=== PATIENT | male | born 2000 | race Two or more races ===

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

== ENCOUNTER 2019-08-24 18:44 | Inpatient (IN) | payer MEDICAID, OTHER ==
[~2019-08-24] VITALS: Ht 185.4 cm; Wt 68.2 kg
[2019-08-24] MEDS ORDERED: MIDAZOLAM DRIP 50 mg/50mL 50 ML IV ONE (18:50)
[2019-08-24] MEDS: MIDAZOLAM DRIP 50 mg/50mL 50 ML IV SCH ×2 (18:58→22:02)
[2019-08-24] MEDS ORDERED: ETOMIDATE (2MG/ML) 20ML VIAL IV ONE (19:00)
[2019-08-24] MEDS ORDERED: MIDAZOLAM HCL 5 MG/ML-1ML VIAL IV ONE (19:00)
[2019-08-24] MEDS ORDERED: SUCCINYLCHOLINE CHLORIDE 20 MG/ML 10ML VIAL IV ONE (19:00)
[2019-08-24] MEDS ORDERED: SODIUM CHLORIDE 0.9% 1,000 ML IVB ONE (19:01)
[2019-08-24] MEDS ORDERED: NOREPINEPHRINE 8 MG/250ML KIT 250 ML IV ONE (19:11)
[2019-08-24] MEDS: NOREPINEPHRINE 8 MG/250ML KIT 250 ML IV SCH (19:15)
[2019-08-24 19:28] LABS: Basophils # (auto) 0 uL; Basophils % (auto) 0.3 % (0.0-2.0); Eosinophils # (auto) 0.3 uL; Hematocrit 51.5 % (41.0-53.0); Hemoglobin 16.8 g/dL (13.5-17.5); Lymphocytes # (auto) 3.9 uL; Lymphocytes % (auto) 31.1 % (10.0-50.0); Mean Corpuscular Hemoglobin 30.8 pg (28.0-32.0); Mean Corpuscular Hgb Conc. 32.6 g/dL (32.0-36.0); Mean Corpuscular Volume 94.4 fL (80.0-100.0); Monocytes # (auto) 0.6 uL; Monocytes % (auto) 5.1 % (0.0-12.0); Neutrophils # (auto) 7.8 uL; Neutrophils % (auto) 61.5 % (37.0-80.0); Nucleated Red Blood Cells % 0.1 %; Platelet Count (auto) 220 10^3/uL (140-450); Red Blood Cells 5.45 10^6/uL (4.5-5.90); Red Cell Distribution Width 13.6 % (11.8-14.3); White Blood Cell 12.7 10^3/uL (4.4-10.8)
[2019-08-24 19:37] LABS: Urine Amorphous Crystal FEW /hpf (None Seen); Urine Bacteria NONE SEEN /hpf (None Seen); Urine Blood TRACE /uL (Negative); Urine Sperm PRESENT /hpf (None Seen); Urine WBC 3 /hpf (0 - 3)
[2019-08-24 19:47] LABS: Albumin 4.2 g/dL (3.4-5.0); Anion Gap 19 (5-15); Blood Alcohol < 3.0 mg/dL (0-5); Blood Urea Nitrogen 18 mg/dL (7-18); Calcium 8.2 mg/dL (8.5-10.1); Carbon Dioxide 15 mmol/L (21-32); Chloride 106 mmol/L (98-107); Glucose 194 mg/dL (74-106); Magnesium 1.9 mg/dL (1.6-2.6); Potassium 3.6 mmol/L (3.5-5.1); Sodium 140 mmol/L (136-145)
[2019-08-24 19:47] LABS: Cannabinoid Screen, Urine NEGATIVE (NEGATIVE)
[2019-08-24 19:50] LABS: Alanine Aminotransferase 139 U/L (16-61); Alkaline Phosphatase 132 U/L (45-117); Aspartate Aminotransferase 151 U/L (15-37); Bilirubin, Total 0.5 mg/dL (0.2-1.0); GFR African American 92 mL/min; GFR Non-African American 76 mL/min; Total Protein 7.3 g/dL (6.4-8.2)
[2019-08-24 19:53] LABS: INR 1.09 (0.9-1.15); Partial Thromboplastin Time 24.9 sec (23.64-32.05)
[2019-08-24 19:54] LABS: Alcohol, Urine < 3.0 mg/dL (0-5); Amphetamine Screen, Urine NEGATIVE (NEGATIVE); Barbiturate Scree,Urine NEGATIVE (NEGATIVE); Benzodiazephine Screen, Urine NEGATIVE (NEGATIVE); Cocaine Screen, Urine NEGATIVE (NEGATIVE); Opiate Scree,Urine NEGATIVE (NEGATIVE); Phencyclidine Screen, Urine NEGATIVE (NEGATIVE)
[2019-08-24] MEDS ORDERED: SODIUM BICARBONATE 8.4 % INJ 50ML VIAL IV ONE (20:15)
[2019-08-24 22:12] VITALS: BP 118/67
[2019-08-24] MEDS ORDERED: NITROGLYCERIN 0.4 MG SL TAB SL PRN (22:45)
[2019-08-24] MEDS ORDERED: DEXTROSE (50%) 50ML SYRG IV PRN (22:45)
[2019-08-24] MEDS ORDERED: MEPERIDINE HCL (25 MG/ML) 1ML VIAL IV PRN ×2 (22:45)
[2019-08-24] MEDS ORDERED: MORPHINE SULF INJ 2 MG/ML SYRINGE 1ML IV PRN (22:45)
[2019-08-24] MEDS ORDERED: MAGNESIUM SULFATE 1GM/100ML 100 ML IV SCH (23:30)
[2019-08-24 23:31] VITALS: BP 121/62
[2019-08-24 23:45] VITALS: BP 112/62
--- NOTE | 2019-08-24 23:55 | NUR ---
Admit to ICU from [facility] to [facility] via gurney on library monitor, intubated and being bagged by Respiratory Therapist. Patient transfered to bed, connected to mechanical ventilator by therapist, ILIANA at bedside. Patient connected to ICU monitoring, weighed by cierra, oriented to Maik Diop, RN primary RN, unit, ventilator and sedation. Family in waiting room, updated on patient status, oriented to Maik Diop as primary nurse.
[2019-08-25] VITALS (100 sets, daily range): BP systolic 82–146; BP diastolic 40–96
--- NOTE | 2019-08-25 | NUR ---
OPENING ASSESSMENT PATIENT SEDATED ON VERSED @15 WITH POSITIVE GAG AND BRISK REACTIVE PUPILS. SEIZURE PRECAUTIONS IN PLACE. PATIENT IS HAVING RAPID MUSCLE MOVEMENTS THAT CAN BE DESCRIBED "SHAKING" ON BILATERAL ARMS. ATRACURIUM TO BE STARTED. TEMP AT THIS TIME IS 37.4'C, INITIATED ZOLL INTRAVENOUS COOLING. HR 100'S NO ECTOPY NOTED. BP 110', LEVO @ 4 MCG'S ETT 7.5 AND 26 @ LIP AC 18. VENT SETTINGS AC 18 TV 500 PEEP +5, FIO2 30%, SAT 100%. LUNGS CLEAR. ETT SUCTION DONE WITH CLEAR SECRETIONS. PAGED HOSPITALIST FOR FENTANYL ORDER, RECEIVED BY ER MD LEY AND STARTED AT THIS TIME. NGT TO RIGHT NARIS CLAMPED, AUSCULTATED AND ASPIRATED FOR CORRECT PLACEMENT. NGUYEN FREE OF KINKS, HUNG BELOW BLADDER DRAINING CLEAR YELLOW URINE. RIGHT FEMORAL ZOLL CATH AND CLEAN DRY AND INTACT. NO HEMATOMA PALPATED. SKIN IS INTACT. BED LOCKED AND IN LOWEST POSITION. ALL FALL AND SAFETY PRECAUTIONS IN PLACE.
[2019-08-25] MEDS: fentaNYL Drip 2500mCg/250mlNS 250 ML IV SCH ×2 (00:10→17:43)
[2019-08-25] MEDS: ATRACURIUM BESYLATE 1,000 MG in D5W 5% 150 ML IV SCH ×2 (00:46→22:07)
[2019-08-25] MEDS: PIPERACILLIN-TAZOB 3.375GM 100 ML IV SCH ×4 (00:52→17:42)
[2019-08-25] MEDS: MIDAZOLAM DRIP 50 mg/50mL 50 ML IV SCH ×5 (00:59→21:28)
[2019-08-25] MEDS ORDERED: SODIUM BICARBONATE 8.4% INJ 50ML SYRINGE ONE (01:09)
[2019-08-25] MEDS: SODIUM BICARBONATE 50ML VIAL 50 ML in SOD CHL 0.45% 1,000 ML IV SCH ×3 (01:20→23:51)
[2019-08-25] MEDS: POTASSIUM CHL 20MEQ/100ML 100 ML IV SCH ×2 (01:32→03:37)
--- NOTE | 2019-08-25 01:45 | NUR ---
ATRACURIUM/TOF INITIAL TO ON RIGHT RADIAL 03/05 WITH POWER OF 4 GAVE INITIAL ATRACURIUM BOLUS PER PROTOCOL 0146 STARTED ATRACURIUM
[2019-08-25] MEDS: ACCU-CHEK COMFORT CURVE STRIP VI SCH ×4 (01:46→17:41)
[2019-08-25] MEDS: InsuLIN REG 1unit/0.01ml Soln (100units/ml) SC SCH ×4 (01:46→17:41)
--- NOTE | 2019-08-25 01:55 | NUR ---
FAMILY 30 PLUS FAMILY/ FRIENDS IN WAITING ICU WAITING ROOM. BROUGHT MOTHER AND FATHER TO BEDSIDE. UPDATED PARENTS ON PATIENT STATUS AND ANSWERED ALL QUESTIONS AND CONCERNS. FATHER SET PASSWORD OF [employer]. VISITORS THEN BEGAN TO VISIT 2 AT A TIME.
--- NOTE | 2019-08-25 02:00 | NUR ---
TOF 2/4 WITH 4 POWER
--- NOTE | 2019-08-25 02:11 | NUR ---
PATIENT @ 33.0'C PATIENT REACHED TARGET THERAPEUTIC TEMPERATURE.
--- NOTE | 2019-08-25 02:20 | NUR ---
TOF 1/4 WITH POWER OF 4 DECREASED PER PROTOCOL
--- NOTE | 2019-08-25 04:30 | NUR ---
PAGED HOSPITALIST SILAS PENNINGTON CALLED BACK, UPDATED ON PATIENT STATUS. INFORMED ABOUT HEART RATE IN 40'S AND ORDERS RECEIVED TO START DOPAMINE AT 2.5MCG/KG/HR FOR BRADYCARDIA AND TO TITRATE TO 5MCG/KG/HR IF BRADYCARDIA CONTINUES.
[2019-08-25] MEDS ORDERED: DOPamine 1600MCG/ML D5W 250 ML IV ONE (04:33)
[2019-08-25] MEDS: DOPamine 1600MCG/ML D5W 250 ML IV SCH ×2 (04:48→21:58)
--- NOTE | 2019-08-25 05:00 | NUR ---
TOF 2/4 WITH POWER OF 4
--- NOTE | 2019-08-25 05:11 | NUR ---
FAMILY AT BEDSIDE PARENTS FATHER AND MOTHER RETURN TO BEDSIDE, UPDATED ON PATIENT STATUS AND NEW MEDICATION DOPAMINE STARTED FOR LOW HEART RATE.
--- NOTE | 2019-08-25 05:27 | NUR ---
SILAS PENNINGTON AT BEDSIDE UPDATED BAG SEWER ON PATIENT STATUS, BAG SEWER SAID TO TITRATE ATRACURIUM TO CONTROL SHIVERS OF PATIENT NOT TO USE TOF.
--- NOTE | 2019-08-25 05:30 | NUR ---
NEURO CONSULT CALLED TO PBX FOR @[id number]
[2019-08-25 05:53] LABS: Basophils # (auto) 0 uL; Basophils % (auto) 0.2 % (0.0-2.0); Eosinophils # (auto) 0 uL; Eosinophils % (auto) 0.1 % (0.0-7.0); Hematocrit 47.6 % (41.0-53.0); Hemoglobin 16.4 g/dL (13.5-17.5); Lymphocytes # (auto) 1.6 uL; Lymphocytes % (auto) 10.1 % (10.0-50.0); Mean Corpuscular Hemoglobin 31.2 pg (28.0-32.0); Mean Corpuscular Hgb Conc. 34.4 g/dL (32.0-36.0); Mean Corpuscular Volume 90.7 fL (80.0-100.0); Monocytes # (auto) 1.7 uL; Monocytes % (auto) 10.5 % (0.0-12.0); Neutrophils # (auto) 12.7 uL; Neutrophils % (auto) 79.1 % (37.0-80.0); Platelet Count (auto) 172 10^3/uL (140-450); Red Blood Cells 5.25 10^6/uL (4.5-5.90); Red Cell Distribution Width 13.2 % (11.8-14.3); White Blood Cell 16.1 10^3/uL (4.4-10.8)
--- NOTE | 2019-08-25 05:55 | NUR ---
SILAS PENNINGTON SPOKE WITH PATENTS ADITI UPDATED BOTH MOTHER AND FATHER OF PATIENT AT BEDSIDE ABOUT PATIENT STATUS. ALL QUESTIONS AND CANCERS ADDRESSED AT THIS TIME. Addendum: 08/25/19 at 0557 by Maik Diop RN RN CONCERNS NOT CANCERS-TYPO
--- NOTE | 2019-08-25 07:36 | NUR ---
END OF SHIFT GAVE REPORT OF FULL SARI ICU PATIENT TO DAY SHIFT RN. ALL SAFETY PRECAUTIONS IN PLACE. VITAL SIGNS STABLE.
--- NOTE | 2019-08-25 08:00 | NUR ---
SBAR REPORT RECEIVED FROM NOC SHIFT RN AT THIS TIME. AM ASSESSMENT PERFORMED WITH 0 COMPLICATIONS NOTED. SEE FLOWSHEET FOR MORE DETAILS. VSS. PT REMAINS ON THERAPEUTIC HYPOTHERMIA PROTOCOL WITH 0 ISSUES NOTED AT THIS TIME.
[2019-08-25 08:18] LABS: Potassium 3.9 mmol/L (3.5-5.1)
[2019-08-25 08:19] LABS: Albumin 4.4 g/dL (3.4-5.0); BUN/Creatinine Ratio 14.3; Bilirubin, Total 1.1 mg/dL (0.2-1.0); Calcium 8.9 mg/dL (8.5-10.1); Total Protein 7.3 g/dL (6.4-8.2)
--- NOTE | 2019-08-25 08:20 | NUR ---
MD COYNE AT BEDSIDE. MD SPOKE WITH FAMILY EXTENSIVELY REGARDING POC. FAMILY VERBALIZED UNDERSTANDING. NO FURTHER QUESTIONS AT THIS TIME, VSS.
--- NOTE | 2019-08-25 09:00 | NUR ---
SOLUTION COORDINATOR AT BEDSIDE AT THIS TIME PERFORMING PROCEDURE PER ORDERS. PT TOLERATED ACTIVITY WELL WITH 0 COMPLICATIONS NOTED.VSS.
[2019-08-25] MEDS: FAMOTIDINE (10MG/ML) 2ML VL IV SCH ×2 (09:46→22:02)
[2019-08-25] MEDS: ENOXAPARIN SOD 30 MG/0.3 ML SYRINGE SC SCH (09:46)
--- NOTE | 2019-08-25 10:30 | NUR ---
LOWER EXTREMITY VENOUS STUDY BEING DONE AT THIS TIME WITH 0 COMPLICATIONS NOTED, VSS.
--- NOTE | 2019-08-25 11:30 | NUR ---
BRIDAL STYLIST SALES CONSULTANT AT BEDSIDE PERFORMING PROCEDURE REQUESTED BY MD COYNE. PT TOLERATED PROCEDURE WELL WITH 0 COMPLICATIONS NOTED. VSS.
--- NOTE | 2019-08-25 12:00 | NUR ---
WOUND CARE NOTE: PATIENT ADDED TO SKIN INTEGRITY MONITORING D/T PATIENT'S INTUBATION STATUS, AND LOW MIHIR SCORE OF 12. PATIENT ADMITTED WITH DIAGNOSIS OF CARDIAC ARREST. HE REMAINS INTUBATED, SEDATED AT THIS TIME. PATIENT IS CURRENTLY WOUND FREE. SKIN/WOUND CARE PLAN IMPLEMENTED. RECOMMEND: FREQUENT TURN SCHEDULE Q 2 HOURS, PRN CONDITION PERMITS, WITH PRESSURE REDISTRIBUTION USING PILLOWS/WEDGES, BID/PRN APPLICATION WITH MOISTURE BARRIER CREAM, WITH OPTIFOAM GENTLE SACRAL DRESSING PREVENTATIVE, DIETARY CONSULT, CONTINUED MONITORING BY WOUND CARE TEAM.
--- NOTE | 2019-08-25 12:00 | NUR ---
MD LEE AT BEDSIDE. UPDATED MD ON PT'S OVERALL STATUS. NEW ORDERS GIVEN AND IMPLEMENTED, VSS. SPOKE WITH FAMILY AT BEDSIDE REGARDING POC. NO FURTHER QUESTIONS FROM FAMILY. FAMILY VERBALIZED UNDERSTANDING WITH POC AT THIS TIME, VSS.
[2019-08-25] MEDS ORDERED: POTASSIUM CHL 20MEQ/100ML 100 ML IV ONE (12:15)
--- NOTE | 2019-08-25 12:25 | NUR ---
ELECTROENCEPHALOGRAM COMPLETED AT BEDSIDE. ALISON SPEARS AND DR. LEE AT BEDSIDE AND AWARE.
--- NOTE | 2019-08-25 15:20 | NUR ---
MD KESSLER AT BEDSIDE. UPDATED MD ON PT STATUS. NO NEW ORDERS AT THIS TIME. MD UPDATED FAMILY WITH POC, NO FURTHER QUESTIONS FROM FAMILY AT THIS TIME, VSS.
--- NOTE | 2019-08-25 16:15 | NUR ---
PT STARTING TO ALVARO (HR RANGING 45-52) DESPITE INTERVENTIONS TO KEEP HR UP TO 60 (PT DOES NOT SUSTAIN WITH HR IN THE 40'S, IT IS SPORADIC). PAGING MD LEE FOR UPDATE AND POSSIBLE ORDERS. LEVOPHED GTT RESTARTED DUE TO PT GOING HYPOTENSIVE (SBP<85 ). WILL CONTINUE TO MONITOR PT. VSS.
--- NOTE | 2019-08-25 16:32 | NUR ---
SPOKE WITH MD DOTY ABOUT PT'S BRADYCARDIA. MD MADE AWARE, NEW ORDERS GIVEN AND IMPLEMENTED. PER MD, HE IS OK WITH TITRATION OF DOPAMINE GTT UP TO MAX DOSE FOR NOW. WILL CONTINUE TO FOLLOW UP WITH MD LEE. PACE MAKER PADS PLACED FOR PRECAUTION. HR RANGING IN THE 50'S AT THIS TIME (GTT INCREASED TO 10MCG/KG/MIN).
--- NOTE | 2019-08-25 16:54 | NUR ---
SPOKE WITH MD LEE AND UPDATED HIM ON PT'S BRADYCARDIA AND RHYTHM CHANGES. PER MD, KEEP LEVOPHED GTT OFF AND INCREASE DOPAMINE GTT TOLERATED. PACER PADS IN PLACE, EKG TAKEN AT THIS TIME WELL. PT'S HR IMPROVING WITH INCREASE TO DOPAMINE GTT. LEVOPHED GTT WEANED OFF PER MD ORDERS. VSS.
--- NOTE | 2019-08-25 18:59 | NUR ---
PT RESPONDING WELL TO THE INCREASED DOPAMINE GTT. HR RANGES 60-70'S AT THIS TIME, SINUS RHYTHM. VSS.
[2019-08-25] MEDS: NOREPINEPHRINE 8 MG/250ML KIT 250 ML IV SCH (19:05)
--- NOTE | 2019-08-25 19:30 | NUR ---
OPENING ASSESSMENT RECEIVED REPORT OFF FULL CODE ICU PATIENT FROM DAY SHIFT RN. PATIENT SEDATED ON VERSED @15 AND FENTANYL @150 WITH POSITIVE GAG AND BRISK REACTIVE PUPILS. ATRACURIUM IS AT 3MCG/KG/HR. TEMPERATURE IS AT 33'1 C ON ZOLL INTRAVENOUS COOLING CATH. COOLING. HR 50'S NEW BBB NOTED. BP 100', DOPA @ 10 MCG'S.ETT 7.5 AND 26 @ LIP AC 18. VENT SETTINGS AC 18 TV 500 PEEP +5, FIO2 30%, SAT 100%. LUNGS CLEAR. ETT SUCTION DONE WITH CLEAR SECRETIONS. NGT TO RIGHT NARIS CLAMPED, AUSCULTATED AND ASPIRATED FOR CORRECT PLACEMENT. NGUYEN FREE OF KINKS, HUNG BELOW BLADDER DRAINING CLEAR YELLOW URINE. RIGHT FEMORAL ZOLL CATH AND CLEAN DRY AND INTACT. NO HEMATOMA PALPATED. SKIN IS INTACT. LEFT KNEE OSTEO CATH REMOVED. BED LOCKED AND IN LOWEST POSITION. ALL FALL AND SAFETY PRECAUTIONS IN PLACE.
--- NOTE | 2019-08-25 19:50 | NUR ---
UPDATED REGIONAL FLATBED TRUCK DRIVER ADITI ON PATIENT STATUS INFORMED REGIONAL FLATBED TRUCK DRIVER ABOUT BBB AND RHYTHM CHANGES, NO NEW ORDERS RECEIVED.
--- NOTE | 2019-08-25 20:04 | NUR ---
FATHER THE FATHER AND MOTHER CAME IN TO THE UNIT AFTER REQUESTING TO COME IN BUT BROUGHT 2 OTHER GUESTS. INFORMED FAMILY ABOUT VISITING RULES BUT FATHER SAID "THINGS ARE CHANGING NOW" AND WALKED INTO PATIENTS ROOM AND CLOSED CURTAIN WITH GUEST. INFORMED CHARGE NURSE OF SITUATION.
--- NOTE | 2019-08-25 21:36 | NUR ---
VISITORS AT BEDSIDE TWO YOUNG MALE VISITORS VISUALIZED TAKING PICTURES OF PATIENT IN ROOM. INFORMED ABOUT NOT TO TAKE PICTURES OF PATIENT. INFORMED CHARGE NURSE.
[2019-08-26] VITALS (95 sets, daily range): BP systolic 75–128; BP diastolic 26–88
[2019-08-26 00:12] LABS: Potassium 3.4 mmol/L (3.5-5.1)
--- NOTE | 2019-08-26 00:57 | NUR ---
HOSPITALIST PAGED K 3.4. ABEBA FINISH FILER CALL BACK. FINISH FILER ORDERED 20 MEQ K IVP ONCE.
[2019-08-26] MEDS ORDERED: POTASSIUM CHL 20MEQ/100ML 100 ML IV ONE (01:00)
[2019-08-26] MEDS: MIDAZOLAM DRIP 50 mg/50mL 50 ML IV SCH ×2 (01:06→05:27)
--- NOTE | 2019-08-26 02:05 | NUR ---
BEGAN REWARMING TTM SET TO 37'C ON ZOLL MONITOR WITH CONTROLLED RATE OF 0.5'C PER HOUR. PER HOSPITAL PROTOCOL.
--- NOTE | 2019-08-26 03:48 | NUR ---
BED BATH FULL BED BATH GIVEN TO PATIENT. SKIN REASSESSED AND NO NEW BREAK DOWN NOTED. RIGHT ZOLL FEMORAL CENTRAL LINE IS INTACT AND DRESSING IN CLEAN. REWARMING TEMPERATURE IS AT 34'C. VITAL SIGNS STABLE. FENTANYL TITRATED TO INCREASE COMFORT.
[2019-08-26 05:21] LABS: Basophils # (auto) 0.1 uL; Basophils % (auto) 0.9 % (0.0-2.0); Eosinophils # (auto) 0.1 uL; Eosinophils % (auto) 1.5 % (0.0-7.0); Hematocrit 45.8 % (41.0-53.0); Lymphocytes # (auto) 0.7 uL; Lymphocytes % (auto) 8.3 % (10.0-50.0); Mean Corpuscular Hemoglobin 31.1 pg (28.0-32.0); Mean Corpuscular Hgb Conc. 34.9 g/dL (32.0-36.0); Mean Corpuscular Volume 89.1 fL (80.0-100.0); Monocytes # (auto) 0.5 uL; Monocytes % (auto) 5.4 % (0.0-12.0); Neutrophils # (auto) 7.1 uL; Neutrophils % (auto) 83.9 % (37.0-80.0); Nucleated Red Blood Cells % 0.1 %; Platelet Count (auto) 141 10^3/uL (140-450); Red Blood Cells 5.14 10^6/uL (4.5-5.90); Red Cell Distribution Width 13.3 % (11.8-14.3); White Blood Cell 8.4 10^3/uL (4.4-10.8)
[2019-08-26 05:39] LABS: Albumin 3.5 g/dL (3.4-5.0); Calcium 8.8 mg/dL (8.5-10.1)
[2019-08-26 05:45] LABS: BUN/Creatinine Ratio 11.7; Bilirubin, Total 1.6 mg/dL (0.2-1.0); Total Protein 6.2 g/dL (6.4-8.2)
[2019-08-26] MEDS: InsuLIN REG 1unit/0.01ml Soln (100units/ml) SC SCH ×3 (05:45→12:00)
[2019-08-26] MEDS: ACCU-CHEK COMFORT CURVE STRIP VI SCH ×3 (05:46→12:01)
[2019-08-26] MEDS: PIPERACILLIN-TAZOB 3.375GM 100 ML IV SCH ×4 (05:46→17:48)
--- NOTE | 2019-08-26 06:28 | NUR ---
FATHER PATIENTS FATHER AT BEDSIDE PRAYING WITH PATIENT.
[2019-08-26] MEDS ORDERED: IOHEXOL 350 MG/ML 100ML IJ ONE (07:23)
[2019-08-26] MEDS ORDERED: LIDOCAINE 2%HCL (LOCAL ANESTH.) INJ 20ML MDV ONE (07:24)
--- NOTE | 2019-08-26 07:41 | NUR ---
END OF SHIFT GAVE REPORT OF FULL CODE ICU PATIENT TO DAY SHIFT RN. ALL SAFETY PRECAUTIONS IN PLACE. VITAL SIGNS STABLE.
--- NOTE | 2019-08-26 08:30 | NUR ---
REWARMING COMPLETED AT 36. [address] COYNE, HE SAID IT WAS OK FOR PT TO GO TO NEGATIVE TURNER.
--- NOTE | 2019-08-26 08:35 | NUR ---
RT Transport Note: Patient transported to bundle tier and labeler with ALISON Huitron. Patient transported to and from procedure on ventilator with previous ordered settings. Patient on motorboat mechanic inboard with alarms set and audible, ambu-bag/mask connected to 02 tank. Patient returned to room with no adverse reaction noted. Transport completed without incident.
--- NOTE | 2019-08-26 08:35 | NUR ---
ASSISTED PT TO ASSISTANT PROFESSOR OF BIOCHEMISTRY VIA BED PT'S MOTHER & FATHER CAME IN TO SEE PT JUST BEFORE HE WAS TAKEN TO ASSISTANT PROFESSOR OF BIOCHEMISTRY PT'S PARENTS HAD SPOKEN TO NEUROLOGIST IN THE HALLWAY, THEY WERE ALREADY AWARE THAT PT WAS WAKEN UP AND WAS ABLE TO FOLLOW SOME SIMPLE COMMANDS. HE WAS ABLE TO MOVE HIS HEAD FROM SIDE TO SIDE HIS HEAD FOR YES AND NO ANSWERS. HE NODDED "NO" WHEN HE WAS ASKED IF HIS NAME WAS BLANK, THEN HE NODDED "YES" WHEN HE WAS ASKED IF HIS NAME WAS CLARE. PT'S PARENTS WERE CRYING OF HAPPINESS.
[2019-08-26] MEDS: ENOXAPARIN SOD 30 MG/0.3 ML SYRINGE SC SCH (09:18)
--- NOTE | 2019-08-26 09:24 | NUR ---
NO LOVENOX CLARIFIED WITH DR. KESSLER HE DOES NOT WANT PT TO HAVE LOVENOX PT IS GOING TO HAVE AN AICD TOMORROW, HE WANTS PT TO BE WEANED OFF ALL SEDATION AND BE EXTUBATED TODAY.
[2019-08-26] MEDS: FAMOTIDINE (10MG/ML) 2ML VL IV SCH ×2 (10:08→22:39)
[2019-08-26] MEDS: DOPamine 1600MCG/ML D5W 250 ML IV SCH ×3 (10:08→17:49)
--- NOTE | 2019-08-26 12:38 | NUR ---
Nutrition Consult/assessment Notes please see attached link for complete assessment Est. Needs IBW [id number] kcal (25-30 kcal/kgBW), 83-99 gms pro (1.0-1.2 gms/kgBW). Will continue to monitor pertinent labs and reassess nutrient need prn Addendum: 08/26/19 at [address]39 [address] De Los [address] RD Amended: Links added.
--- NOTE | 2019-08-26 13:45 | NUR ---
EXTUBATED PT'S FAMILY AT BEDSIDE DOING WELL ON CM, REMAINS ON DOPAMINE AT 14 MC/KG/MIN DR. DOTY AWARE. PT'S FATHER & MOTHER EDUCATED ON POC ON WHAT TO EXPECT S/P EXTUBATION, SEDATION MIGHT REMAIN ON SYSTEM UP TO 72 HOURS, PT MIGHT REMAIN SLEEPY. PT'S RT GROIN REMAINS SOFT TO THE TOUCH.
--- NOTE | 2019-08-26 13:45 | NUR ---
Respiratory note Patient on CPAP with PS of 8 for 30 min. NIF of -30.0. and ABG within normal limits. Results given to Dr. Hart and given instructions to extubate. Suctioned small amount of clear/ white sputum, deflated cuff and extubated. Placed patient on cool aerosol, 6LPM Fi02 30%. No stridor noted. RR 16 and Sp02 99%.
[2019-08-26] MEDS: SODIUM CHLORIDE 0.9% 1,000 ML IV SCH (15:07)
--- NOTE | 2019-08-26 16:23 | NUR ---
DR. DOTY ROUNDJERI ON PT UPDATED ON PT'S HYPOTENSION EPISODE, BP DROPPED TO THE 70'S EARLIER DOPAMINE ALREADY AT 16 MCG/KG/MIN. BP NOW IN THE LOW 100'S, HR REMAINED IN THE 80'S. . STATES HE BELIEVES HYPOTENSION IS DUE TO SEDATION, IF THAT HAPPENS AGAIN TO GIVE PATIENT A 250 NS BOLUS AND TO REPEAT X 1 IF NECESSARY, WHEN PT IS MORE AWAKE HE CAN BE STARTED ON A CLEAR LIQUID DIET.
--- NOTE | 2019-08-26 16:40 | NUR ---
PAGED DR. DOTY PT VOMITED ONCE PT DOES NOT HAVE ANYTHING FOR N/V PRN. PT STILL NAUSEATED.
--- NOTE | 2019-08-26 16:51 | NUR ---
DR. DOTY CALLED BACK ORDERED ZOFRAN FOR NAUSEA HE WANTS PT TO REMAIN NPO FOR TONIGHT
[2019-08-26] MEDS: ONDANSETRON HCL 4 MG/2 ML VIAL IV PRN (17:00)
--- NOTE | 2019-08-26 19:35 | NUR ---
OPENING ASSESSMENT RECEIVED REPORT OFF FULL CODE ICU PATIENT FROM DAY SHIFT RN. PATIENT AOX4 ON 2LNC 100%FIO2 ANSWERING QUESTIONS APPROPRIATELY AND FOLLOWING COMMANDS. LUNGS CLEAR. LARGE AMOUNT OF FAMILY/FRIENDS TRYING TO SEE PATIENT, INFORMED FATHER AND MOTHER ABOUT ICU VISITING RULES. HR 90'S NSR. BP 110' ON DOPA. NGUYEN FREE OF KINKS, HUNG BELOW BLADDER DRAINING CLEAR YELLOW URINE. RIGHT FEMORAL ZOLL CATH AND CLEAN DRY AND INTACT. NO HEMATOMA PALPATED. LEFT PTCA INCISION SITE FREE OF HEMATOMA, BASHIR AND TEGADERM DRESSING CLEAN/DRY. SKIN IS INTACT. BED LOCKED AND IN LOWEST POSITION. ALL FALL AND SAFETY PRECAUTIONS IN PLACE.
--- NOTE | 2019-08-26 22:50 | NUR ---
FATHER UPDATED WITH BOTH FATHER AND MOTHER OF PLAN OF CARE FOR PATIENT. ALL QUESTIONS AND CONCERNS ADDRESSED AT THIS TIME.
--- NOTE | 2019-08-26 23:09 | NUR ---
FAMILY FATHER SAID FOR NO MORE VISITORS TO DISTURB PATIENT UNTIL HIS RETURN IN AM.
[2019-08-27] VITALS (60 sets, daily range): BP systolic 91–125; BP diastolic 32–73
[2019-08-27] MEDS: PIPERACILLIN-TAZOB 3.375GM 100 ML IV SCH ×3 (00:02→11:22)
[2019-08-27] MEDS: SODIUM CHLORIDE 0.9% 1,000 ML IV SCH ×2 (02:05→15:25)
[2019-08-27] MEDS: DOPamine 1600MCG/ML D5W 250 ML IV SCH (02:31)
--- NOTE | 2019-08-27 04:30 | NUR ---
FULL BED BATH PATIENT GIVEN FULL BED BATH AND TURNED. SKIN RE-ASSESSED AND NO NEW BREAK DOWN SEEN. RIGHT FEMORAL ZOLL CATH IS CLEAN AND INTACT. LEFT PTCA INCISION SITE IS INTACT AND FREE OF HEMATOMA. PATIENT WAS ABLE TO BRUSH OWN TEETH AND FOLLOWED SIMPLE COMMANDS.
[2019-08-27 04:48] LABS: Basophils # (auto) 0 uL; Basophils % (auto) 0.3 % (0.0-2.0); Eosinophils # (auto) 0 uL; Eosinophils % (auto) 0.4 % (0.0-7.0); Hematocrit 41.4 % (41.0-53.0); Hemoglobin 14.8 g/dL (13.5-17.5); Lymphocytes # (auto) 0.7 uL; Lymphocytes % (auto) 9.7 % (10.0-50.0); Mean Corpuscular Hemoglobin 31.5 pg (28.0-32.0); Mean Corpuscular Hgb Conc. 35.7 g/dL (32.0-36.0); Mean Corpuscular Volume 88.3 fL (80.0-100.0); Monocytes # (auto) 0.6 uL; Monocytes % (auto) 7.2 % (0.0-12.0); Neutrophils # (auto) 6.4 uL; Neutrophils % (auto) 82.4 % (37.0-80.0); Platelet Count (auto) 126 10^3/uL (140-450); Red Blood Cells 4.69 10^6/uL (4.5-5.90); Red Cell Distribution Width 13.3 % (11.8-14.3); White Blood Cell 7.7 10^3/uL (4.4-10.8)
[2019-08-27 04:58] LABS: INR 1.16 (0.9-1.15); Partial Thromboplastin Time 33.6 sec (23.64-32.05)
[2019-08-27 05:06] LABS: Albumin 3.4 g/dL (3.4-5.0); Calcium 8.7 mg/dL (8.5-10.1); Potassium 3.4 mmol/L (3.5-5.1)
--- NOTE | 2019-08-27 05:09 | NUR ---
UPDATED STATUS WITH BOTH PARENTS IN ROOM, PATIENT ORIENTATED TO SELF AND TO FAMILY NOT TO SITUATION OR DATE. CONTINUES TO ASK REPEAT QUESTIONS "WHERE AM I" "HOW DID I GET HERE" UNABLE TO SIGN CONSENTS FOR PACEMAKER AT THIS TIME.
[2019-08-27 05:10] LABS: Magnesium 1.7 mg/dL (1.6-2.6); Total Protein 6.3 g/dL (6.4-8.2)
[2019-08-27 06:21] LABS: BUN/Creatinine Ratio 9.8
--- NOTE | 2019-08-27 07:10 | NUR ---
REPORT RECEIVED FROM NECKTIE TURNER NURSE. PATIENT RESTING IN BED AT THIS TIME. RESPIRATIONS EVEN AND UNLABORED. NO SIGNS OF ACUTE DISTRESS NOTED. CALL LIGHT IN REACH, BED IN LOW POSITION. WILL CONTINUE TO MONITOR.
--- NOTE | 2019-08-27 07:43 | NUR ---
END OF SHIFT GAVE REPORT OF FULL CODE ICU PATIENT TO DAY SHIFT RN. ALL SAFETY PRECAUTIONS IN PLACE. VITAL SIGNS STABLE.
[2019-08-27] MEDS: ENOXAPARIN SOD 30 MG/0.3 ML SYRINGE SC SCH (10:00)
[2019-08-27] MEDS: FAMOTIDINE (10MG/ML) 2ML VL IV SCH ×2 (10:12→21:40)
[2019-08-27] MEDS: ONDANSETRON HCL 4 MG/2 ML VIAL IV PRN (11:18)
--- NOTE | 2019-08-27 13:34 | NUR ---
DR LOERA AT BEDSIDE TO ASSESS PATIENT AND DISCUSS PLAN OF CARE. MD AWARE OF POTASSIUM LEVEL 3.4 ALL ORDERS NOTED IN CHART.
[2019-08-27] MEDS: POTASSIUM CHL 20MEQ/100ML 100 ML IV SCH ×2 (14:01→16:00)
[2019-08-27] MEDS: MAGNESIUM SULFATE 1GM/100ML 100 ML IV SCH ×2 (14:01→15:10)
--- NOTE | 2019-08-27 14:58 | NUR ---
PATIENT TRANSFERRED TO DISTRICT ADMINISTRATIVE ASSISTANT VIA BED CONNECTED TO PORTABLE MONITOR AND OXYGEN ACCOMPANIED BY DISTRICT ADMINISTRATIVE ASSISTANT NURSES. NO SIGNS OF DISTRESS NOTED.
[2019-08-27] MEDS ORDERED: fentaNYL CITRATE 100 MCG/2 ML VL ONE (15:08)
[2019-08-27] MEDS ORDERED: MIDAZOLAM HCL 1MG/1ML-2 ML VIAL ONE (15:08)
[2019-08-27] MEDS ORDERED: VANCOMYCIN HCL 1000 MG VL ONE (15:08)
[2019-08-27] MEDS ORDERED: LIDOCAINE 2%HCL (LOCAL ANESTH.) INJ 20ML MDV ONE ×2 (15:09→15:42)
[2019-08-27] MEDS ORDERED: VANCOMYCIN 1GM/250ML 250 ML IV ONE (15:18)
[2019-08-27] MEDS ORDERED: diphenhdrAMINE HCL 50 MG/1 ML VL ONE (15:55)
[2019-08-27] MEDS ORDERED: methylPREDNISolone SOD SUCC 125 MG/2 ML VL ONE (15:56)
[2019-08-27] MEDS ORDERED: EPINEPHrine HCL 1 MG/1 ML AMP ONE (16:09)
[2019-08-27] MEDS ORDERED: EPINEPHrine HCL 1 MG/10 ML SYRG ONE (16:09)
[2019-08-27] MEDS ORDERED: ceFAZolin 1GM VL ONE (16:15)
--- NOTE | 2019-08-27 16:33 | NUR ---
REPORT RECEIVED FROM CRYPTOGRAPHER NURSE. PATIENT TO COME BACK TO ROOM 106. PER CRYPTOGRAPHER NURSE CLEARED PATIENT FOR DOWNGRADE AFTER RECOVERY MONITORING.
--- NOTE | 2019-08-27 16:36 | NUR ---
PT ARRIVAL FROM ICU PT ARRIVED FROM ICU. REPORT RECEIVED FROM EMMA ROSAS. TELE BOX #[id number]. NGUYEN IS PATENT AND DRAINING. NO S/S OF DISTRESS AT THIS TIME. ADMISSION ORDERS PRESENT AT TIME OF ARRIVAL. S/P AICD INSERTION. SITE IS CDI.
--- NOTE | 2019-08-27 16:46 | NUR ---
PATIENT BACK TO ROOM 106 VIA BED CONNECTED TO BEDSIDE MONITOR. VITAL SIGNS STABLE, PATIENT IS LETHARGIC BUT RESPONSIVE AND ANSWERING QUESTIONS APPROPRIATELY. WILL CONTINUE TO MONITOR.
--- NOTE | 2019-08-27 17:29 | NUR ---
REPORT GIVEN TO CARMEN ROSAS FROM TELEMETRY FLOOR. PATIENT TO GO TO ROOM 209. TELE BOX 35
--- NOTE | 2019-08-27 17:47 | NUR ---
PACEMAKER FITTER WELDER AT BEDSIDE TO ASSESS PATIENT AND DISCUSS DEVICE WITH PARENTS.
--- NOTE | 2019-08-27 18:36 | NUR ---
PATIENT TRANSFERRED TO ROOM 209 VIA BED WITH PARENTS AT BEDSIDE. PRIMARY NURSE AND NURSES AID INFORMED OF PATIENT ARRIVAL. NO SIGNS OF ACUTE DISTRESS NOTED. Addendum: 08/27/19 at 1910 by CARMEN ESCALANTE RN RN PT IS CURRENTLY ON 2L NC. RESTING IN BED WIHT CLEAR LUNG SOUNDS. LBM IS UNKOWN. BOWEL SOUND ARE PRESENT AND ABDOMEN IS SOFT WITH NO TENDERNESS
--- NOTE | 2019-08-27 19:26 | NUR ---
Opening Shift Note Assumed care of patient, awake and alert x 4. No S/S of distress/SOB. Bed is in lowest position and locked. Call light within reach. Board updated. Leads in correct placement. Left arm in cling. AICD site is [facility]. Patient is on 2 l/min NC. Correa is secured to thigh with securement device. Correa bag hung below bladder and attached to non-moveable part of bedframe. Instructed on POC and to call for assist PRN, will continue to monitor for changes Q1hr and PRN.
--- NOTE | 2019-08-27 22:00 | NUR ---
Paging hospitalist to request an advance in diet and approval to discontinue Correa catheter. Patient is currently NPO because he was having some nausea in ICU before being transferred to unit, but that has resolved. Patient able to tolerate ice chips. Requesting clear liquid diet. Also requesting order to discontinue Correa accurate I&O since patient is no longer on ventilator and is not on vasopressors.
--- NOTE | 2019-08-27 22:08 | NUR ---
Patient is also reporting some mild pain 3 out of 10 in his left chest when he breaths in and out. Patient recently had an AICD placed today in his left chest.
--- NOTE | 2019-08-27 23:20 | NUR ---
Spoke to SILAS Ye. Orders: 1) Discontinue Correa catheter, 2) Clear liquid diet.
--- NOTE | 2019-08-27 23:58 | NUR ---
Osorio catheter dc'd Order to discontinue osorio catheter. Osorio dc'd with clean technique following deflation of balloon. Patient tolerated well with no complaints of pain. Continue care.
--- NOTE | 2019-08-27 23:59 | NUR ---
Patient ambulated to bathroom with standby assist. Patient tolerated well.
--- NOTE | 2019-08-28 01:04 | NUR ---
Patient may have had AICD fire. [employer] called and noticed me that patient appeared to have his AICD fire at 0050. Patient was asleep at the time and felt nothing. Patient was back in sin Addendum: 08/28/19 at 0119 by RAMA PALOMARES RN back in Normal sinus rhythm on assessment. Vitals: BP: 97/48 with MAP of 72, HR: 81, O2 sat: 98% on 2 l/min NC, RR: 18, Temp: 98.6. Will notify manager small business.
--- NOTE | 2019-08-28 01:08 | NUR ---
Paged Dr. Lorenzana, who is front office director for MD Rodriguez, and paged MD Rondon regarding possible AICD fire.
--- NOTE | 2019-08-28 01:16 | NUR ---
Spoke to MD Lorenzana. Order: STAT BMP. Addendum: 08/28/19 at 0438 by RAMA PALOMARES RN Correction: "STAT CMP" not BMP.
[2019-08-28 02:16] LABS: Albumin 3.6 g/dL (3.4-5.0); Calcium 9.2 mg/dL (8.5-10.1); Potassium 4.1 mmol/L (3.5-5.1)
[2019-08-28 02:19] LABS: Bilirubin, Total 0.6 mg/dL (0.2-1.0); Total Protein 6.8 g/dL (6.4-8.2)
--- NOTE | 2019-08-28 04:39 | NUR ---
Patient has voided twice in toilet. Will continue to monitor.
[2019-08-28] MEDS: SODIUM CHLORIDE 0.9% 1,000 ML IV SCH ×2 (04:46→15:21)
[2019-08-28 05:00] VITALS: BP 115/51
[2019-08-28 09:00] VITALS: BP 128/50
[2019-08-28] MEDS: cefTRIAXone 1GM/50ML D5W 50 ML IV SCH (09:27)
[2019-08-28] MEDS: ENOXAPARIN SOD 30 MG/0.3 ML SYRINGE SC SCH (09:27)
[2019-08-28] MEDS: FAMOTIDINE (10MG/ML) 2ML VL IV SCH ×2 (09:27→21:14)
--- NOTE | 2019-08-28 09:58 | NUR ---
DR. LEE CALLED HE ORDERED CARDIOLOGY CONSULT FOR DR. GILLETTE FOR V-FIB ARREST AND TO CONSIDER EP STUDY, ORDERED AICD INTERROGATION.
--- NOTE | 2019-08-28 11:05 | NUR ---
AICD INTERROGATION DONE BY JANINE, SHE SAID IT IS OKAY, THE STRIP IS SHOWING V PACED, WILL CONTINUE TO MONITOR.
--- NOTE | 2019-08-28 11:51 | NUR ---
Nutrition Follow-up Notes Wt.: 57.3 kg Pt`s successfully extubated with multiple family members and MD at bedside. per pt records pt s/p AICD. pt with no distress noted currently on clear liq diet with no PO recorded yet Est. Needs IBW [id number] kcal (25-30 kcal/kgBW), 83-99 gms pro (1.0-1.2 gms/kgBW). Will continue to monitor pertinent labs and reassess nutrient need prn Labs: GLU 163 H. rest lab wnl Skin: Logan scale 16, mod risk,skin intact per mill operator head. GI: Pt's no bowel activity reported per mill operator head. PES: Increased nutrient needs r.t current chronic medical condition aeb pt`s underwt with BMI of 16.6 kgm2 and NPO Altered nutrition related lab values r/t current/chronic medical condition aeb hyperbil Will continue to monitor PO intake, skin status, pertinent labs and weight trend. F/u in 2-3 days. Rec.: 1.) advance diet as medically feasible with ensure enlive 1 carton bid. 2) consider ensure clear 1 carton tid if pt continues on CLD refer to [facility] dietitian on DC
--- NOTE | 2019-08-28 13:20 | NUR ---
PAIN PT COMPLAINING OF POST OP INCISION PAIN 05/11, PT HAS NO PAIN MEDICATION. PAGED DR. CROOKS, WAITING FOR CALL BACK. Addendum: 08/28/19 at 1333 by Yudelka Kurtz RN DR. CROOKS ORDERED TYLENOL 500MG PO Q6PRN FOR MILD TO MODERATE PAIN.
[2019-08-28] MEDS: ACETAMINOPHEN 500 MG TAB PO PRN ×2 (13:55→21:14)
--- NOTE | 2019-08-28 16:35 | NUR ---
CENTRAL LINE DRESSING CHANGED, RIGHT GROIN.
[2019-08-28 16:54] VITALS: BP 119/62
--- NOTE | 2019-08-28 19:26 | NUR ---
Opening Shift Note Assumed care of patient, awake and alert x 4. No S/S of distress/SOB. bed is in lowest position and locked. Call light within reach. Board updated. Tele box number matches monitor and leads are in correct placement. NS infusing at 75 mls/hr. Instructed on POC and to call for assist PRN, will continue to monitor for changes Q1hr and PRN.
[2019-08-28 22:00] VITALS: BP 113/48
[2019-08-28] MEDS ORDERED: IBUP800T24 PO (23:49)
[2019-08-29 05:37] VITALS: BP 105/41
[2019-08-29] MEDS: ACETAMINOPHEN 500 MG TAB PO PRN (05:56)
[2019-08-29 06:11] LABS: Basophils # (auto) 0 uL; Basophils % (auto) 0.4 % (0.0-2.0); Eosinophils # (auto) 0 uL; Eosinophils % (auto) 0.4 % (0.0-7.0); Hematocrit 37.9 % (41.0-53.0); Hemoglobin 13.2 g/dL (13.5-17.5); Lymphocytes # (auto) 1.1 uL; Lymphocytes % (auto) 19.4 % (10.0-50.0); Mean Corpuscular Hgb Conc. 34.9 g/dL (32.0-36.0); Monocytes # (auto) 0.4 uL; Monocytes % (auto) 7.7 % (0.0-12.0); Neutrophils # (auto) 4.2 uL; Neutrophils % (auto) 72.1 % (37.0-80.0); Nucleated Red Blood Cells % 0.1 %; Platelet Count (auto) 125 10^3/uL (140-450); Red Blood Cells 4.26 10^6/uL (4.5-5.90); Red Cell Distribution Width 13.2 % (11.8-14.3); White Blood Cell 5.8 10^3/uL (4.4-10.8)
[2019-08-29 06:43] LABS: Potassium 4.1 mmol/L (3.5-5.1)
[2019-08-29 06:50] LABS: Albumin 3.3 g/dL (3.4-5.0); BUN/Creatinine Ratio 27.5; Bilirubin, Total 0.6 mg/dL (0.2-1.0); Calcium 8.8 mg/dL (8.5-10.1); Magnesium 2.2 mg/dL (1.6-2.6); Phosphorus 3.3 mg/dL (2.5-4.90); Total Protein 6.2 g/dL (6.4-8.2)
--- NOTE | 2019-08-29 07:15 | NUR ---
Open Shift Note Received report on patient, awake and sitting up in bed. Patient shows no signs of distress at this time. Discussed POC with patient and patient's brother at bedside. Bed in lowest locked position, side rails up x2 and call light within reach. Will continue to monitor.
[2019-08-29] MEDS: SODIUM CHLORIDE 0.9% 1,000 ML IV SCH ×2 (07:34→21:30)
[2019-08-29] MEDS: cefTRIAXone 1GM/50ML D5W 50 ML IV SCH (09:38)
[2019-08-29] MEDS: FAMOTIDINE (10MG/ML) 2ML VL IV SCH ×2 (09:39→22:05)
[2019-08-29] MEDS: ENOXAPARIN SOD 30 MG/0.3 ML SYRINGE SC SCH (09:39)
--- NOTE | 2019-08-29 10:55 | NUR ---
Paged Dr Calvo Paged Dr Calvo to ask when the EP study will be performed. Awaiting call back.
[2019-08-29 12:55] VITALS: BP 115/57
[2019-08-29 16:47] VITALS: BP 123/65
--- NOTE | 2019-08-29 17:24 | NUR ---
Received Call From Dr Lubna Calvo stated to have patient's family here Saturday morning so they can discuss options and possible plans for EP study. also stated to keep patient NPO after midnight (no breakfast Saturday).
--- NOTE | 2019-08-29 18:42 | NUR ---
Closing Note Patient sitting up in bed, shows no signs of distress at this time. Family present at bedside. Bed in lowest locked position, side rails up x2 and call light within reach.
--- NOTE | 2019-08-29 19:25 | NUR ---
Opening Shift Note Assumed care of patient, awake and alert. No S/S of distress/SOB or pain. Family is present at bedside. Instructed on POC and to call for assist PRN, will continue to monitor for changes Q1hr and PRN.
[2019-08-29 21:42] VITALS: BP 121/59
[2019-08-30 04:35] VITALS: BP 128/58
--- NOTE | 2019-08-30 07:25 | NUR ---
Open Shift Note Received report on patient, awake and sitting up in bed. Patient shows no signs of distress at this time. Patient states, "I'm just tired of being here". Acknowledged patient's feelings and discussed POC. Bed in lowest locked position, side rails up x2 and call light within reach. Will continue to monitor.
[2019-08-30 07:58] LABS: Basophils # (auto) 0 uL; Basophils % (auto) 0.7 % (0.0-2.0); Eosinophils # (auto) 0.1 uL; Eosinophils % (auto) 3.2 % (0.0-7.0); Hematocrit 41.2 % (41.0-53.0); Hemoglobin 14.2 g/dL (13.5-17.5); Lymphocytes # (auto) 1.4 uL; Lymphocytes % (auto) 29.7 % (10.0-50.0); Mean Corpuscular Hemoglobin 30.9 pg (28.0-32.0); Mean Corpuscular Hgb Conc. 34.5 g/dL (32.0-36.0); Mean Corpuscular Volume 89.6 fL (80.0-100.0); Monocytes # (auto) 0.4 uL; Monocytes % (auto) 8.4 % (0.0-12.0); Neutrophils # (auto) 2.7 uL; Nucleated Red Blood Cells % 0.2 %; Platelet Count (auto) 127 10^3/uL (140-450); Red Cell Distribution Width 12.9 % (11.8-14.3); White Blood Cell 4.6 10^3/uL (4.4-10.8)
[2019-08-30 08:06] LABS: Potassium 4.3 mmol/L (3.5-5.1)
[2019-08-30 08:16] LABS: Albumin 3.8 g/dL (3.4-5.0); BUN/Creatinine Ratio 22.5; Bilirubin, Total 0.5 mg/dL (0.2-1.0); Calcium 9.2 mg/dL (8.5-10.1); Total Protein 6.9 g/dL (6.4-8.2)
[2019-08-30 09:17] VITALS: BP 120/68
[2019-08-30] MEDS: cefTRIAXone 1GM/50ML D5W 50 ML IV SCH (09:22)
[2019-08-30] MEDS: FAMOTIDINE (10MG/ML) 2ML VL IV SCH ×2 (09:23→22:11)
[2019-08-30] MEDS: ENOXAPARIN SOD 30 MG/0.3 ML SYRINGE SC SCH (09:23)
--- NOTE | 2019-08-30 10:20 | NUR ---
Left Voicemail With Patient's Father Left voicemail with patient's father to update on POC. Awaiting call back. Nguyễn,
[2019-08-30] MEDS ORDERED: IOHEXOL 350 MG/ML 100ML IJ ONE (10:30)
[2019-08-30 12:30] VITALS: BP 115/64
[2019-08-30] MEDS: SODIUM CHLORIDE 0.9% 1,000 ML IV SCH (15:12)
--- NOTE | 2019-08-30 19:30 | NUR ---
Opening Shift Note Assumed care of patient, awake and alert. No S/S of distress/SOB or pain. Instructed on POC and to call for assist PRN, will continue to monitor for changes Q1hr and PRN.
[2019-08-30 21:52] VITALS: BP 130/94
[2019-08-31 05:00] VITALS: BP 122/82
[2019-08-31 05:05] LABS: Basophils # (auto) 0 uL; Basophils % (auto) 0.4 % (0.0-2.0); Eosinophils # (auto) 0.3 uL; Eosinophils % (auto) 6.1 % (0.0-7.0); Hematocrit 38.1 % (41.0-53.0); Hemoglobin 13.6 g/dL (13.5-17.5); Lymphocytes # (auto) 1.3 uL; Mean Corpuscular Hemoglobin 31.4 pg (28.0-32.0); Mean Corpuscular Hgb Conc. 35.6 g/dL (32.0-36.0); Mean Corpuscular Volume 88.1 fL (80.0-100.0); Monocytes # (auto) 0.5 uL; Monocytes % (auto) 10.6 % (0.0-12.0); Neutrophils # (auto) 2.4 uL; Neutrophils % (auto) 53.9 % (37.0-80.0); Platelet Count (auto) 111 10^3/uL (140-450); Red Blood Cells 4.33 10^6/uL (4.5-5.90); Red Cell Distribution Width 12.7 % (11.8-14.3); White Blood Cell 4.5 10^3/uL (4.4-10.8)
[2019-08-31 05:25] LABS: Potassium 3.7 mmol/L (3.5-5.1)
[2019-08-31 05:29] LABS: Albumin 3.4 g/dL (3.4-5.0); BUN/Creatinine Ratio 20.6; Calcium 8.7 mg/dL (8.5-10.1)
[2019-08-31 05:34] LABS: Bilirubin, Total 0.6 mg/dL (0.2-1.0); Total Protein 6.1 g/dL (6.4-8.2)
--- NOTE | 2019-08-31 07:01 | NUR ---
Dr. Calvo is at bedside with patient and mother.
--- NOTE | 2019-08-31 07:05 | NUR ---
Dr. Calvo states that the patient could possibly be discharged today.
--- NOTE | 2019-08-31 07:15 | NUR ---
Opening Shift Note Assumed care of patient, awake and alert, mother at bedside. No S/S of distress/SOB or pain. Instructed on POC and to call for assist PRN, will continue to monitor for changes Q1hr and PRN.
[2019-08-31] MEDS: SODIUM CHLORIDE 0.9% 1,000 ML IV SCH ×2 (08:20→12:45)
--- NOTE | 2019-08-31 08:45 | NUR ---
Spoke with family on plan of care, Parents at bedside, patient and family verbalized understanding.
[2019-08-31 09:00] VITALS: BP 119/65
[2019-08-31] MEDS: cefTRIAXone 1GM/50ML D5W 50 ML IV SCH (09:00)
--- NOTE | 2019-08-31 10:00 | NUR ---
assessment Patient has no post discharge needs at this time. Patient will return home with family. Addendum: 08/31/19 at 1649 by Leda MATHEWS Amended: Links added.
[2019-08-31] MEDS: ENOXAPARIN SOD 30 MG/0.3 ML SYRINGE SC SCH (10:28)
[2019-08-31] MEDS: FAMOTIDINE (10MG/ML) 2ML VL IV SCH (10:28)
--- NOTE | 2019-08-31 10:30 | NUR ---
Dr Kearney at bedside, spoke with family about follow up care.
[2019-08-31 13:00] VITALS: BP 127/77
--- NOTE | 2019-08-31 14:00 | NUR ---
TRIPLE LUMEN FEMORAL CATHETER REMOVED, CATHETER INTACT, PRESSURE APPLIED FOR 5 MINUTES, PRESSURE DRESSING APPLIED.
[2019-08-31 14:01] VITALS: BP 127/77
--- NOTE | 2019-08-31 15:00 | NUR ---
FEMORAL SITE DRESSING CLEAN DRY AND INTACT, NO ECCHYMOSIS NOTED.
--- NOTE | 2019-08-31 15:18 | NUR ---
Discharge instructions given as ordered. Encourage to follow up with PMD as instructed. All questions and concerns addressed. Patient verbalized understanding. Medication reconciliation form completed and copy given to patient. Home medications held in Pharmacy returned to patient, and needed vaccines given. IV removed with catheter intact, pressure dressing applied, osorio catheter removed. Telemetry unit returned to ICU. Patient taken to vehicle via wheelchair with all personal belongings, accompanied by staff and family member. No distress noted at time of departure.
== END 2019-08-31 15:18 | disposition home or self-care (01) | DRG 161 ==
LOC: EDSEX 18:44 → EDBD 18:44 → ER 18:45 → OVERFLOW 18:46 → ICU WEST 23:17 → TELE-CENTR 08-27 18:35
PROVIDERS: ADMIT Internal Medicine; ATTEND Internal Medicine
PROC: 5A12012 Performance of Cardiac Output, Single, Manual (ICD-10-PCS; 2019-08-24)
PROC: 02HV33Z Insertion of Infusion Device into Superior Vena Cava, Percutaneous Approach (ICD-10-PCS; 2019-08-24)
PROC: 5A1945Z Respiratory Ventilation, 24-96 Consecutive Hours (ICD-10-PCS; 2019-08-24)
PROC: 0BH17EZ Insertion of Endotracheal Airway into Trachea, Via Natural or Artificial Opening (ICD-10-PCS; 2019-08-24)
PROC: 4A023N7 Measurement of Cardiac Sampling and Pressure, Left Heart, Percutaneous Approach (ICD-10-PCS; 2019-08-26)
PROC: B2111ZZ Fluoroscopy of Multiple Coronary Arteries using Low Osmolar Contrast (ICD-10-PCS; 2019-08-26)
PROC: B2151ZZ Fluoroscopy of Left Heart using Low Osmolar Contrast (ICD-10-PCS; 2019-08-26)
PROC: 0JH608Z Insertion of Defibrillator Generator into Chest Subcutaneous Tissue and Fascia, Open Approach (ICD-10-PCS; principal; 2019-08-27)
PROC: 02HK3KZ Insertion of Defibrillator Lead into Right Ventricle, Percutaneous Approach (ICD-10-PCS; 2019-08-27)
PROC: 02HV33Z Insertion of Infusion Device into Superior Vena Cava, Percutaneous Approach (ICD-10-PCS; 2019-08-28)
DX: I49.01 Ventricular fibrillation (principal); I21.4 Non-ST elevation (NSTEMI) myocardial infarction; J96.00 Acute respiratory failure, unspecified whether with hypoxia or hypercapnia; I46.9 Cardiac arrest, cause unspecified; A41.9 Sepsis, unspecified organism; K72.00 Acute and subacute hepatic failure without coma; G93.1 Anoxic brain damage, not elsewhere classified; J18.9 Pneumonia, unspecified organism; G93.41 Metabolic encephalopathy; Z79.899 Other long term (current) drug therapy; Z95.810 Presence of automatic (implantable) cardiac defibrillator; Z88.1 Allergy status to other antibiotic agents
CPT/HCPCS: 31500; 33249; 36415; 36556; 36600; 51702; 70450; 71045; 71275; 74018; 80053; 80307; 80320; 81001; 82805; 82962; 83036; 83605; 83735; 83835; 83880; 84100; 84132; 84443; 84484; 85025; 85379; 85610; 85730; 87040; 87070; 87081; 87086; 87205; 92950; 93005; 93306; 93458; 93970; 94002; 94003; 94640; 94761; 95819; 99152; 99153; 99291; G0378; J0171; J0690; J0696; J1815; J2250; J2405; J2543; J3480; J3490; J7060

== ENCOUNTER 2019-11-01 21:15 | Emergency (ER) | payer OTHER, MEDICAID ==
[~2019-11-01] VITALS: Ht 182.9 cm; Wt 56.2 kg
[~2019-11-01 21:15] MED LIST: IBUP800T24 PO
[2019-11-01 22:33] VITALS: BP 112/69
== END 2019-11-01 23:34 | disposition left against medical advice (07) ==
LOC: ER 21:18
DX: M25.512 Pain in left shoulder (principal); M54.9 Dorsalgia, unspecified; Z53.21 Procedure and treatment not carried out due to patient leaving prior to being seen by health care provider
CPT/HCPCS: 71045; 73030; 93005

== ENCOUNTER 2020-01-26 22:29 | Emergency (ER) | payer OTHER, MEDICAID ==
[~2020-01-26] VITALS: Ht 182.9 cm; Wt 59.0 kg
[~2020-01-26 22:29] MED LIST changes: +CARV3.1240 PO; +MAGN400T40 PO
[2020-01-26] MEDS ORDERED: diphenhdrAMINE HCL 50 MG/1 ML VL IV ONE (22:45)
[2020-01-26] MEDS ORDERED: SODIUM CHLORIDE 0.9% 1,000 ML IV ONE (22:45)
[2020-01-26] MEDS ORDERED: methylPREDNISolone SOD SUCC 125 MG/2 ML VL IV ONE (22:45)
[2020-01-26 23:38] LABS: Basophils # (auto) 0 uL; Basophils % (auto) 0.1 % (0.0-2.0); Eosinophils # (auto) 0 uL; Eosinophils % (auto) 0.3 % (0.0-7.0); Hematocrit 45.5 % (41.0-53.0); Hemoglobin 15.1 g/dL (13.5-17.5); Lymphocytes # (auto) 1.5 uL; Lymphocytes % (auto) 13.2 % (10.0-50.0); Mean Corpuscular Hemoglobin 30.2 pg (28.0-32.0); Mean Corpuscular Hgb Conc. 33.2 g/dL (32.0-36.0); Monocytes % (auto) 9.3 % (0.0-12.0); Neutrophils # (auto) 8.6 uL; Neutrophils % (auto) 77.1 % (37.0-80.0); Platelet Count (auto) 191 10^3/uL (140-450); Red Cell Distribution Width 13.6 % (11.8-14.3); White Blood Cell 11.2 10^3/uL (4.4-10.8)
[2020-01-26 23:53] LABS: INR 1.13 (0.9-1.15); Partial Thromboplastin Time 26.9 sec (23.64-32.05)
[2020-01-26 23:56] LABS: Anion Gap 7 (5-15); BUN/Creatinine Ratio 33.7; Blood Urea Nitrogen 28 mg/dL (7-18); Calcium 8.4 mg/dL (8.5-10.1); Carbon Dioxide 24 mmol/L (21-32); Chloride 108 mmol/L (98-107); GFR African American 152 mL/min; GFR Non-African American 126 mL/min; Glucose 98 mg/dL (74-106); Potassium 3.6 mmol/L (3.5-5.1); Sodium 139 mmol/L (136-145)
[2020-01-27 00:01] LABS: Alanine Aminotransferase 19 U/L (16-61); Alkaline Phosphatase 90 U/L (45-117); Aspartate Aminotransferase 13 U/L (15-37); Bilirubin, Total 0.6 mg/dL (0.2-1.0); Total Protein 7.4 g/dL (6.4-8.2)
[2020-01-27 01:00] VITALS: BP 96/37
== END 2020-01-27 02:20 | disposition home or self-care (01) ==
LOC: ER 22:35
DX: T78.40XA Allergy, unspecified, initial encounter (principal); R06.02 Shortness of breath; Z88.1 Allergy status to other antibiotic agents; Z79.899 Other long term (current) drug therapy; X58.XXXA Exposure to other specified factors, initial encounter
CPT/HCPCS: 36415; 71045; 80053; 84484; 85025; 85610; 85730; 93005; 96374; 96375; 99285; J1200; J2930; J7030

== ENCOUNTER 2020-07-24 08:10 | Emergency (ER) | payer MEDICAID ==
[~2020-07-24] VITALS: Ht 185.4 cm; Wt 62.6 kg
[2020-07-24 08:23] VITALS: BP 133/85
[2020-07-24 08:40] LABS: Basophils # (auto) 0 10 ^3/uL (0-0.2); Basophils % (auto) 0.4 % (0.0-2.0); Eosinophils # (auto) 0.2 10 ^3/uL (0-0.8); Hematocrit 48.7 % (41.0-53.0); Hemoglobin 16.3 g/dL (13.5-17.5); Lymphocytes # (auto) 1.3 10 ^3/uL (0.4-5.4); Lymphocytes % (auto) 28.1 % (10.0-50.0); Mean Corpuscular Hemoglobin 30.5 pg (28.0-32.0); Mean Corpuscular Hgb Conc. 33.5 g/dL (32.0-36.0); Mean Corpuscular Volume 91.1 fL (80.0-100.0); Monocytes # (auto) 0.4 10 ^3/uL (0-1.3); Monocytes % (auto) 8.7 % (0.0-12.0); Neutrophils # (auto) 2.7 10 ^3/uL (1.6-8.6); Neutrophils % (auto) 57.8 % (37.0-80.0); Nucleated Red Blood Cells % 0.1 %; Platelet Count (auto) 165 10^3/uL (140-450); Red Blood Cells 5.35 10^6/uL (4.5-5.90); Red Cell Distribution Width 13.5 % (11.8-14.3); White Blood Cell 4.7 10^3/uL (4.4-10.8)
[2020-07-24 09:04] LABS: Alanine Aminotransferase 27 U/L (16-61); Albumin 4.3 g/dL (3.4-5.0); Anion Gap 4 (5-15); Aspartate Aminotransferase 19 U/L (15-37); BUN/Creatinine Ratio 30.3; Blood Urea Nitrogen 23 mg/dL (7-18); Carbon Dioxide 26 mmol/L (21-32); Chloride 108 mmol/L (98-107); GFR African American 168 mL/min; GFR Non-African American 139 mL/min; Glucose 89 mg/dL (74-106); Potassium 3.9 mmol/L (3.5-5.1); Sodium 138 mmol/L (136-145)
[2020-07-24 09:09] LABS: Alkaline Phosphatase 86 U/L (45-117); Bilirubin, Total 0.9 mg/dL (0.2-1.0); Total Protein 7.4 g/dL (6.4-8.2)
[2020-07-24 09:15] LABS: INR 1.05 (0.9-1.15); Partial Thromboplastin Time 31.3 sec (23.0-31.2)
== END 2020-07-24 17:31 | disposition left against medical advice (07) ==
LOC: ER 08:10
DX: R07.89 Other chest pain (principal); Z53.21 Procedure and treatment not carried out due to patient leaving prior to being seen by health care provider
CPT/HCPCS: 36415; 80053; 84484; 85025; 85610; 85730; 93005

== ENCOUNTER 2020-11-04 08:43 | Emergency (ER) | payer MEDICAID, OTHER ==
[~2020-11-04] VITALS: Ht 182.9 cm; Wt 63.5 kg
[~2020-11-04 08:43] MED LIST changes: -IBUP800T24 PO; +IBUP800T27 PO
[2020-11-04 08:49] VITALS: BP 132/77
[2020-11-04] MEDS ORDERED: LIDOCAINE 1% HCL (LOCAL ANESTH.) INJ 20ML MDV ONE (09:28)
[2020-11-04] MEDS ORDERED: cefTRIAXone SOD 1,000 MG VL IM ONE (09:30)
[2020-11-04] MEDS ORDERED: ONDANSETRON ODT 4 MG TAB PO ONE (09:30)
[2020-11-04] MEDS ORDERED: methylPREDNISolone SOD SUCC 125 MG/2 ML VL IM ONE (09:30)
== END 2020-11-04 10:21 | disposition home or self-care (01) ==
LOC: ER 08:43
DX: J02.9 Acute pharyngitis, unspecified (principal); J30.2 Other seasonal allergic rhinitis
CPT/HCPCS: 93005; 96372; 99284; J0696; J2001; J2930; Q0162

== ENCOUNTER 2021-11-10 07:57 | Emergency (ER) | payer MEDICAID ==
[~2021-11-10] VITALS: Ht 182.9 cm; Wt 68.0 kg
[2021-11-10 08:33] VITALS: BP 136/84
[2021-11-10] MEDS ORDERED: LIDOCAINE VISCOUS 2% 15ML UD PO ONE (08:45)
[2021-11-10] MEDS ORDERED: cefTRIAXone SOD 1,000 MG VL IM ONE (08:45)
[2021-11-10] MEDS ORDERED: PROM1SOL4 PO (09:02)
[2021-11-10] MEDS ORDERED: AMOX500T86 PO (09:02)
[2021-11-10] MEDS ORDERED: LIDO2SOL23 PO (09:02)
== END 2021-11-10 09:58 | disposition home or self-care (01) ==
LOC: ER 07:57
DX: J02.9 Acute pharyngitis, unspecified (principal); H66.91 Otitis media, unspecified, right ear; Z95.0 Presence of cardiac pacemaker; Z79.1 Long term (current) use of non-steroidal anti-inflammatories (NSAID); Z79.899 Other long term (current) drug therapy; Z88.1 Allergy status to other antibiotic agents
CPT/HCPCS: 71046; 93005; 96372; 99283; J0696

== ENCOUNTER → 2023-07-23 13:50 | Emergency (ER) | payer MEDICAID ==
[~2023-07-23] VITALS: Ht 185.4 cm; Wt 71.3 kg
[~2023-07-23 13:50] MED LIST changes: +AMOX500T86 PO; +IBUP-1456 PO; -IBUP800T27 PO; +LIDO2SOL26 PO; +PROM1SOL4 PO
[2023-07-23 14:27] LABS: Urine WBC None Seen /hpf (0 - 3)
[2023-07-23 14:39] LABS: Alanine Aminotransferase 16 U/L (7-40); Albumin 4.8 g/dL (3.2-4.8); Alkaline Phosphatase 87 U/L (46-116); Anion Gap 6.4 (5-15); Aspartate Aminotransferase 11 U/L (13-40); BUN/Creatinine Ratio 16.5 (10.0-20.0); Blood Urea Nitrogen 13 mg/dL (9-23); Calcium 9.6 mg/dL (8.5-10.1); Carbon Dioxide 28.6 mmol/L (20-30); Chloride 106 mmol/L (98-107); Glucose 91 mg/dL (74-106); Potassium 4.3 mmol/L (3.5-5.1); Sodium 141 mmol/L (136-145)
[2023-07-23 14:40] LABS: Total Protein 6.6 g/dL (5.7-8.2)
[2023-07-23 15:15] LABS: Urine Bacteria NONE SEEN /hpf (None Seen); Urine Blood Negative /uL (Negative); Urine Clarity Clear (Clear); Urine Color Yellow (Yellow); Urine Protein, UAD Negative (Negative); Urine Specific Gravity 1.022 (1.001-1.035); Urine Urobilinogen Normal (Negative); Urine pH 5.5 (5.0-8.0)
[2023-07-23 16:20] LABS: Basophils # (auto) 0 10 ^3/uL (0-0.2); Basophils % (auto) 0.7 % (0.0-2.0); Eosinophils # (auto) 0.1 10 ^3/uL (0-0.8); Eosinophils % (auto) 4.1 % (0.0-7.0); Hematocrit 44.2 % (41.0-53.0); Hemoglobin 14.8 g/dL (13.5-17.5); Lymphocytes # (auto) 1.4 10 ^3/uL (0.4-5.4); Mean Corpuscular Hemoglobin 30.6 pg (28.0-32.0); Mean Corpuscular Hgb Conc. 33.6 g/dL (32.0-36.0); Mean Corpuscular Volume 91.1 fL (80.0-100.0); Monocytes # (auto) 0.3 10 ^3/uL (0-1.3); Monocytes % (auto) 7.1 % (0.0-12.0); Neutrophils # (auto) 1.8 10 ^3/uL (1.6-8.6); Neutrophils % (auto) 50.1 % (37.0-80.0); Nucleated Red Blood Cells % 0.5 %; Red Blood Cells 4.85 10^6/uL (4.5-5.90); Red Cell Distribution Width 13.9 % (11.8-14.3); White Blood Cell 3.6 10^3/uL (4.4-10.8)
[2023-07-23 17:58] VITALS: BP 111/68; PULSE 56; RESP 18; TEMP 98.2; O2SAT 100
== END | disposition home or self-care (01) ==
LOC: ER 13:50
DX: R07.89 Other chest pain (principal); Z95.0 Presence of cardiac pacemaker; Z79.2 Long term (current) use of antibiotics; Z79.1 Long term (current) use of non-steroidal anti-inflammatories (NSAID); Z79.899 Other long term (current) drug therapy; Z88.1 Allergy status to other antibiotic agents
CPT/HCPCS: 36415; 71045; 80053; 81001; 84484; 85025; 93005